=== PATIENT | female | born 1945 | race Caucasian/White ===

== ENCOUNTER → 2017-06-30 | Outpatient (CLI) | payer OTHER ==
[~2017-06-30] MED LIST: IOPAMIDOL (ISOVUE-300) 100 ML BTL ONE
== END ==
LOC: FIMAGING 09:48
PROVIDERS: ATTEND Internal Medicine
DX: N28.89 Other specified disorders of kidney and ureter (principal); R59.9 Enlarged lymph nodes, unspecified
CPT/HCPCS: 74178; Q9967

== ENCOUNTER → 2017-07-16 | Outpatient (CLI) | payer OTHER | LOC: CIMAGING 09:40 | PROVIDERS: ATTEND Specialist | DX: R91.8 Other nonspecific abnormal finding of lung field (principal); N28.89 Other specified disorders of kidney and ureter; I25.10 Atherosclerotic heart disease of native coronary artery without angina pectoris | CPT/HCPCS: 71250-PO ==

== ENCOUNTER 2017-07-29 11:25 | Inpatient (IN) | payer OTHER ==
[2017-07-29] MEDS ORDERED: LR 1,000 ML IV ONE (11:52)
[2017-07-29] MEDS ORDERED: LIDOCAINE 1% 2 ML INJ ID PRN (11:52)
[2017-07-29] MEDS ORDERED: ceFAZolin 2 GM/SWFI 2 GM/20 ML SYR IVP ONE (12:15)
--- NOTE | 2017-07-29 12:20 | PDHPUP ---
History & Physical Update H&P update statement: This history and physical update is based on an assessment of the patient which was completed after admission or registration (within 24 hours), but prior to the surgery/procedure. H&P update: no change in patient's condition since H&P completed
--- NOTE | 2017-07-29 12:24 | PDANEPAE ---
ANE History of Present Illness 71 yo female with urethelial carcinoma for L nephroureterectomy ANE Past Medical History - Cardiovascular History Hx Hypertension: Yes Hx Arrhythmias: No Hx Chest Pain: No Hx Coronary Artery / Peripheral Vascular Disease: No Hx CHF / Valvular Disease: No Hx Palpitations: No Cardiovascular History Comment: LBBB. HYPERLIPIDEMIA - Pulmonary History Hx COPD: No Hx Asthma/Reactive Airway Disease: No Hx Recent Upper Respiratory Infection: No Hx Oxygen in Use at Home: No Hx Sleep Apnea: No Sleep Apnea Screening Result - Last Documented: Negative - Neurologic History Hx Cerebrovascular Accident: No Hx Seizures: No Hx Dementia: No - Endocrine History Hx Diabetes: No Hypothyroid: No Hyperthyroid: No Obesity: no - Renal History Hx Renal Disorders: No Renal History Comment: MASS KIDNEY L - Liver History Hx Hepatic Disorders: No - Neurological & Psychiatric Hx Hx Neurological and Psychiatric Disorders: No - Cancer History Hx Cancer: Yes Cancer History Comment: SQUAMOUS CELL - Congenital Disorder History Hx Congenital Disorders: No - GI History GERD: mild Hx Gastrointestinal Disorders: Yes Gastrointestinal History Comment: IBS - Other Health History Other Health History: NEG - Chronic Pain History Chronic Pain: Yes - Surgical History Prior Surgeries: SUBMANDIBULAR MASS. CATARACTS. URETEROSCOPY ANE Review of Systems Review of Systems: - Exercise capacity METS (RN): 5 METS - Systems Constitutional: Reports: no symptoms Respiratory: Reports: no symptoms ANE Patient History - Allergies Allergies/Adverse Reactions: No Known Allergies Allergy (Unverified 06/25/10 14:44) - Home Medications Home Medications: Cholecalciferol Vit D3 [Vitamin D3 2000 units tab (OTC)] 2,000 units PO DAILY [Last Taken Unknown] Losartan Potassium [Cozaar 50 mg (*)] 100 mg PO HS 07/16/17 [Last Taken Unknown] Metoprolol Tartrate [Lopressor 25 mg (*)] 25 mg PO HS 07/16/17 [Last Taken Unknown] Multivitamins [Multivitamin (*)] 1 each PO DAILY 07/16/17 [Last Taken Unknown] Propylene Glycol/Peg 400 [Systane 0.3-0.4% Eye Drops] 1 drop EACHEYE DAILY PRN 07/16/17 [Last Taken Unknown] Simvastatin [Zocor] 40 mg PO HS 07/19/17 [Last Taken Unknown] - NPO status NPO Since - Liquids (Date): 07/29/17 NPO Since - Liquids (Time): 09:30 NPO Since - Solids (Date): 07/28/17 NPO Since - Solids (Time): 12:00 - Anes Hx Anes Hx: post operative nausea and vomiting - Smoking Hx Smoking Status: Never smoked Marijuana use: No - Alcohol Use Alcohol Use: Rarely - Family Anes Hx Family Anes Hx: neg - N/A Family Hx Anesthesia Complications: NEG ANE Labs/Vital Signs - Vital Signs Blood Pressure: 134/75 Heart Rate: 77 Respiratory Rate: 16 O2 Sat (%): 92 Height: 154.94 cm Weight: 53.524 kg ANE Physical Exam - Airway Neck exam: FROM Mallampati Score: Class 3 Mouth exam: normal dental/mouth exam - Pulmonary Pulmonary: clear to auscultation - Cardiovascular Cardiovascular: regular rate and rhythym - ASA Status ASA Status: III ANE Anesthesia Plan Anesthesia Plan: general endotracheal anesthesia, spinal
[2017-07-29] MEDS ORDERED: MIDAZOLAM 2 MG/2 ML VIAL IVP ONE (12:35)
[2017-07-29] MEDS ORDERED: fentaNYL 100 MCG/2 ML INJ ONE (12:45)
[2017-07-29] MEDS ORDERED: ROCURONIUM 100 MG/10 ML VIAL ONE (12:45)
[2017-07-29] MEDS ORDERED: DEXAMETHASONE 4 MG/ML VIAL ONE (12:45)
[2017-07-29] MEDS ORDERED: morphINE PF 5 MG/10 ML INJ ONE (12:46)
[2017-07-29] MEDS ORDERED: PROPOFOL/EMULSION 500 MG/50 ML BOTTLE IV ONE ×2 (12:46)
[2017-07-29] MEDS ORDERED: MIDAZOLAM 2 MG/2 ML VIAL ONE (12:48)
[2017-07-29] MEDS ORDERED: BUPIVACAINE/EPI 0.5% 30 ML SDV ONE (13:01)
[2017-07-29] MEDS ORDERED: VASOPRESSIN 20 UNIT/ML VIAL ONE (14:03)
[2017-07-29] MEDS ORDERED: PHENYLEPHRINE HCL 100 MCG/ML SYR ONE ×2 (14:45)
[2017-07-29] MEDS ORDERED: THROMBIN(HUM PLAS)/FIBRINOG/CA 5 ML VIAL TP ONE (14:54)
[2017-07-29] MEDS ORDERED: ONDANSETRON 4 MG/2 ML VIAL ONE (15:30)
[2017-07-29] MEDS ORDERED: SUGAMMADEX SODIUM 200 MG/2 ML VIAL IVP ONE (16:08)
[2017-07-29] MEDS ORDERED: PROMETHAZINE HCL 25 MG/ML INJ IVP PRN (16:23)
[2017-07-29] MEDS ORDERED: LR 500 ML IV PRN (16:23)
[2017-07-29] MEDS ORDERED: ALBUTEROL 3 ML DEYVIAL IH PRN (16:23)
[2017-07-29] MEDS ORDERED: NALOXONE HCL 0.4 MG/ML INJ IVP PRN ×2 (16:23→16:38)
[2017-07-29] MEDS ORDERED: DIAZEPAM 10 MG/2 ML SYR IVP PRN (16:23)
[2017-07-29] MEDS ORDERED: ACETAMINOPHEN 500 MG TAB PO PRN (16:23)
--- NOTE | 2017-07-29 16:26 | POSTOPPROG ---
Post Op Note Date of Operation: 07/29/17 Surgeon: Praveen Weldon (# [id number]) Trial Consultant: Betty Weeks CFA Anesthesia: GET(General Endotracheal), Local (Specify) (0.5% Marcaine w/ epinephrine), Other (Specify) (Duramorph spinal) Pre-op Diagnosis: Left renal urothelial mass Post-op Diagnosis: Left renal urothelial mass Procedure: Robotic left nephroureterectomy Findings: See op note Inf/Abcess present in the surg proc area at time of surgery?: No EBL: 50-100 (100 cc) Complications: None Specimen(s): Left kidney & ureter
[2017-07-29] MEDS ORDERED: LIDOCAINE 2% JELLY 5 ML TUBE TP PRN (16:36)
[2017-07-29] MEDS ORDERED: ONDANSETRON 4 MG/2 ML VIAL IVP PRN (16:36)
[2017-07-29] MEDS ORDERED: OPIUM/BELLADONNA ALKALO SUPP PR PRN (16:36)
[2017-07-29] MEDS ORDERED: HYDROmorphONE/DILAUDID 6 MG/30 ML PCA IV PRN (16:38)
--- NOTE | 2017-07-29 16:41 | POSTANESTH ---
Post Anesthetic Evaluation Cardiovascular Status: Normal, Stable Respiratory Status: Normal, Stable Level of Consciousness/Mental Status: Can Participate in Eval, Moderately Sleepy Pain Control: Adequate, Prn Tx Ordered Nausea/Vomiting Control: Adequate, Prn Tx Ordered Complications Possibly Related to Anesthesia: None Noted
[2017-07-29] MEDS: METOPROLOL TARTRATE 25 MG TAB PO SCH (21:27)
[2017-07-29] MEDS: LOSARTAN POTASSIUM 50 MG TAB PO SCH (21:29)
[2017-07-30] MEDS: D5W 1/2 NS 1,000 ML IV SCH ×2 (02:53→22:41)
--- NOTE | 2017-07-30 03:55 | GOP ---
[f rep st] OPERATIVE REPORT DATE OF OPERATION: 07/29/2017 SURGEON: Praveen Weldon MD SALES CONTRACTOR: SHANNAN Bolden ANESTHESIA: General endotracheal with Duramorph spinal. PREOPERATIVE DIAGNOSIS: Left renal urothelial carcinoma. POSTOPERATIVE DIAGNOSIS: Left renal urothelial carcinoma. PROCEDURE PERFORMED: Robotically-assisted laparoscopic left nephroureterectomy. FINDINGS: Grossly normal left kidney and ureter. SPECIMENS: Left kidney and ureter. ESTIMATED BLOOD LOSS: Approximately 100 cc. INDICATIONS: This is a 71-year-old woman recently found to have a left urothelial renal mass that was confirmed to be malignancy on retrograde nephroscopic biopsies. It was recommended that she undergo intraoperative nephroureterectomy at this time. The indications for the procedures as well as potential risks and complications were discussed with the patient preoperatively. She appeared to understand, her questions were answered, and she wished to proceed. Written informed surgical consent was thereafter obtained. DESCRIPTION OF PROCEDURE: The patient was brought to the operating room and administered a Duramorph spinal. She was then carefully placed in the supine position on the operating room table. She was administered general endotracheal anesthesia successfully. She was placed over the break of the table. A triangular pad was placed along the patient's left back, and her left side was propped up approximately 30 degrees. The table was then flexed approximately 20 degrees. The right leg was flexed at the knee, and the left leg was kept straight over it with pillows in between them. All pressure points were then thoroughly padded. The patient was then thoroughly secured to the table with several wide strips of cloth tape as well as using the safety strap on the bed. The patient's left arm was kept in a foam trough along her left side, while the right arm was abducted less than 90 degrees in a neutral position on an arm board. Prior beginning the positioning and the patient had been administered general endotracheal anesthesia, a 20-Occitan Larry catheter was placed without complication and connected to bag drainage. Once the patient had been thoroughly secured to the operating room bed, the bed was airplaned back and forth in maximum positions to ensure patient stability on the operating room table. This was confirmed. The abdomen was then sterilely prepped and draped in standard fashion utilizing Ioban. The table was airplaned in a position so that the patient's abdomen was relatively flat. Intraabdominal access was gained in the left upper quadrant a few centimeters below the xiphoid process and just lateral to the midline with a Veress needle after making a small cheryl in the skin with a scalpel. The abdomen was then insufflated to 15 mmHg and a 12 mm laparoscopic port placed at this location. Proper intraabdominal access was confirmed with a robotic camera at this point. I then marked out my remaining port sites, which were as follows: An 8 mm robotic port placed in the lower part of the left upper quadrant just lateral to the midclavicular line, another 8 mm robotic port placed in the upper portion of the left upper quadrant just below the costal margin and nearly in the same transverse line as the other 8 mm robotic port, and a 12 mm medical assistant secretary port placed in the midline just below the umbilicus. All these ports were placed under direct vision without complication. The patient was then airplaned to a [id number] position approximately 90 degrees. The robot was then docked perpendicular to the bed while keeping the midline post of the robot machine in line with the 12 mm laparoscopic port to be used for the robotic camera. The appropriate robotic arms were secured successfully to the ports. The 0-degree 12 mm robotic camera was used throughout the remainder of the case. I then left the patient's bedside and entered the surgeon's robotic console. I began the robotic portion of the procedure by carefully mobilizing the left colon off the lateral abdominal wall with monopolar scissors dissection. The plane between the anterior aspect of Gerota's fascia and the lateral aspect of the fat associated with the descending colon was identified and developed carefully. The colon was then carefully mobilized medially to about the midline. I continued my dissection inferior to the kidney in order to identify the gonadal vein and ureter. I was ultimately able to identify those structures and continued my dissection posterior to these structures until the psoas fascia was identified. It should be mentioned that a left ureteral stent had been previously placed in the ureter and was kept in and removed with the remainder of the specimen. I then had my medical assistant secretary retract upwards on the ureter and gonadal vein to allow me to continue my dissection in a cephalad fashion towards the renal hilum. I continued the dissection also posteriorly and elevated all the perinephric fat off the psoas fascia and included this fat with the specimen. Along the medial aspect of the dissection, I was able to ultimately identify the primary renal vein. There was a secondary tributary off the primary renal vein that entered the inferior vena cava along its inferior aspect. I ultimately ligated this branch with Hem- o-Ivette clips and divided it with scissors. I was then carefully able to identify the renal artery that was located immediately below the renal vein. I developed a plane above the renal vein carefully until I was able to complete isolate the renal pedicle. A load of the 45 mm linear vascular stapler was then utilized to ligate the renal hilum successfully. I continued my dissection along the superomedial aspect of the kidney and also along the splenorenal ligament and divided this plane of dissection with several uses of the 45 mm linear vascular stapler. The adrenal gland was identified and spared from removal. The posterior dissection off the psoas fascia was then continued superiorly and laterally. I was ultimately able to completely dissect the kidney free. There was no obvious extrarenal malignancy appreciated. I then continued my dissection of the ureter deep into the pelvis as far as possible. I then placed the kidney, while still attached to the ureter, in the pelvis. The renal hilum was carefully inspected. No active bleeding was noted. The spleen was noted to be intact. The adrenal gland was in place and hemostatic. Nonetheless, I did utilize 5 cc of Evicel along the renal hilum and the exposed surface of the adrenal gland for further hemostatic purposes. This completed the robotic portion of the procedure. I then returned to the patient's bedside. A fascial closure device and an 0 Vicryl suture were utilized to reapproximate the rectus fascia at the two 12 mm port sites. The 8 mm robotic ports were then removed. The patient was then airplaned in a position to where her abdomen was near nearly flat. A left lower quadrant oblique incision was made in a Fish-type fashion with a scalpel and carried through the anterior abdominal wall with electrocautery. The external oblique aponeurosis and its continuation with the anterior rectus fascia was then incised with electrocautery. I was able to stay retroperitoneal with this dissection and carried it down until I was able to identify the bladder. I then was able to grab the dissected kidney and its attached ureter and bring it out through the left lower quadrant incision. I continued my dissection of the ureter down to the bladder hiatus. Circumferential dissection through the bladder hiatus was then performed until I was able to reach the intramural portion of the ureter and the ureteral orifice. I was able to perform this dissection with only a small cystotomy created at the level of the left trigone. By this point, I had nursing staff fill the bladder with 100 cc of sterile fluid. I then used electrocautery to circumferentially excise the entire distal portion of the ureter. The stent was also removed in its entirety. The specimen was then passed off the table and sent to Pathology for permanent histologic examination. The bladder was then closed in 2 layers with running 2-0 Vicryl suture. The deeper layer incorporated the mucosa and muscularis propria, while the outer layer incorporated the serosa and muscularis propria. After completing the bladder closure, the bladder was then filled with approximately 150 cc of sterile fluid by nursing staff. The bladder was noted to be watertight. This fluid was then allowed to drain through the catheter and bag. The left lower quadrant wound was then carefully inspected. Some minor bleeding was noted from a small vein medial to the external iliac vein. It was ligated successfully with 2-0 Vicryl stick ties and Hem-o-Ivette clips. There was a small rent in the most inferior aspect of the peritoneum that had been created as result of the initial open dissection. This was closed with running 2-0 Vicryl suture. It should also be mentioned that a [place] retractor with a bladder blade was used to help with retraction during the open portion of procedure. I then initiated closure of the left lower quadrant incision by first reapproximating the anterior rectus fascia and external oblique aponeurotic fibers with running 0 Vicryl suture. Raul's fascia was reapproximated with a running 2-0 Vicryl stitch. The subcutaneous tissue was cauterized for hemostatic purposes. A total of 30 cc of 0.5% Marcaine with epinephrine was used for local anesthetic at all the incisions. The skin edges for each incision were then reapproximated with running 4-0 Monocryl suture in a subcuticular fashion followed by the application of Dermabond. The patient was then awakened, extubated, transferred to her bed, then taken to the recovery room. She tolerated the procedure well overall. COMPLICATIONS: None. DISPOSITION: She was transferred to the recovery room in stable condition and will be admitted for postoperative care. /[id number]/MODL MTDD
--- NOTE | 2017-07-30 08:41 | SOAPPROG ---
SOAP Progress Note Assessment/Plan: Assessment: 1. POD 1 s/p robotic left nephroureterectomy - stable. 2. Probable right corneal abrasion. Discussed w/ Dr. Gonzáles. Plan: 1. Ambulate, continue CLD diet (possibly advance this evening). 2. Continue Larry -- this will need to stay in for about 1 week. 3. Eye drops as per Dr. Gonzáles -- she will order. 07/30/17 08:40 Subjective: Only complaint is tearing and discomfort from her right eye that started immediately after surgery. No N/V. Objective: Vital Signs Temp Pulse Resp BP Pulse Ox 36.8 C 70 12 136/54 H 96 07/30/17 08:00 07/30/17 08:00 07/30/17 08:00 07/30/17 08:00 07/30/17 08:00 Laboratory Results 07/30/17 05:00 07/30/17 05:00 07/29/17 07/30/17 07/31/17 05:59 05:59 05:59 Intake Total 4990 Output Total 710 Balance 4280 Physical Exam - Physical Exam General Appearance: WD/WN, alert, no apparent distress EENT: other (right eye is nearly continuously tearing) Abdomen: non-tender, soft, other (incisions c/d/i) Skin: normal color, warm/dry Extremities: non-tender, normal inspection Neuro/Psych: alert, normal mood/affect, oriented x 3 ICD10 Worksheet Patient Problems: Problems Problem Status Onset Urothelial carcinoma of kidney Acute - ICD10 Problem Qualifiers (1) Urothelial carcinoma of kidney
[2017-07-30] MEDS ORDERED: LIDOCAINE 3.5% OP ONE (13:18)
--- NOTE | 2017-07-30 13:20 | SOAPPROG ---
SOAP Progress Note Assessment/Plan: Assessment: Post op day 1 left nephroureterectomy Eye irritation Urinary retention Plan: Continue clear diet. Lidocaine and toradol eye drops rx RN will irrigate jang catheter and if unable to resume passage of urine, will have them place 22 F catheter. 07/30/17 13:19 Subjective: bladder pain Objective: Vital Signs Temp Pulse Resp BP Pulse Ox 37.0 C 74 12 129/54 H 96 07/30/17 12:00 07/30/17 12:00 07/30/17 12:00 07/30/17 12:00 07/30/17 12:00 Laboratory Results 07/30/17 05:00 07/30/17 05:00 07/29/17 07/30/17 07/31/17 05:59 05:59 05:59 Intake Total 4990 Output Total 710 600 Balance 4280 -600 Physical Exam - Physical Exam General Appearance: alert Respiratory: normal breath sounds Abdomen: distended ICD10 Worksheet Patient Problems: Problems Problem Status Onset Urothelial carcinoma of kidney Acute
[2017-07-30] MEDS: KETOROLAC 0.5% 5 ML OPHT.BTL EACHEYE SCH ×2 (15:06→20:05)
--- NOTE | 2017-07-30 16:27 | ASMTCMCOM ---
CM Note CM Note Notes: Pt had surgery today for renal mass. CM will continue to follow for any DC needs. Date Signed: 07/30/2017 04:27 PM Electronically Signed By:Kathleen Simth LCSW
[2017-07-30] MEDS: METOPROLOL TARTRATE 25 MG TAB PO SCH (20:03)
[2017-07-30] MEDS: LOSARTAN POTASSIUM 50 MG TAB PO SCH (20:03)
[2017-07-30] MEDS: PROMETHAZINE HCL 25 MG/ML INJ IVP PRN (22:42)
[2017-07-31] MEDS: KETOROLAC 0.5% 5 ML OPHT.BTL EACHEYE SCH (05:58)
[2017-07-31] MEDS: D5W 1/2 NS 1,000 ML IV SCH (06:26)
[2017-07-31] MEDS: HYDROCODONE/APAP 10/325 TAB PO PRN ×4 (11:18→20:58)
[2017-07-31] MEDS: BESIVANCE RTEYE SCH ×2 (11:18→21:00)
--- NOTE | 2017-07-31 18:02 | SOAPPROG ---
SOAP Progress Note Assessment/Plan: Assessment: Urothelial carcinoma of kidney Acute POD # 2 Doing well, continue care, path pending Plan: continue care 07/31/17 18:01 Subjective: ok post op Objective: Vital Signs Temp Pulse Resp BP Pulse Ox 36.7 C 86 14 122/55 H 93 07/31/17 16:56 07/31/17 16:56 07/31/17 16:56 07/31/17 16:56 07/31/17 16:56 Laboratory Results 07/31/17 04:20 07/31/17 04:20 07/30/17 07/31/17 08/01/17 05:59 05:59 05:59 Intake Total 4990 2000 Output Total 710 1850 Balance 4280 150 Physical Exam - Physical Exam General Appearance: alert Respiratory: No respiratory distress Cardiac/Chest: regular rate, rhythm Abdomen: No non-tender Back: No CVA tenderness Skin: warm/dry Neuro/Psych: alert, oriented x 3 ICD10 Worksheet Patient Problems: Problems Problem Status Onset Urothelial carcinoma of kidney Acute
[2017-07-31] MEDS: METOPROLOL TARTRATE 25 MG TAB PO SCH (20:58)
[2017-07-31] MEDS: LOSARTAN POTASSIUM 50 MG TAB PO SCH (20:58)
[2017-07-31] MEDS: PROMETHAZINE HCL 25 MG/ML INJ IVP PRN (21:00)
[2017-08-01] MEDS: HYDROCODONE/APAP 10/325 TAB PO PRN ×4 (03:04→21:16)
[2017-08-01] MEDS: BESIVANCE RTEYE SCH ×2 (09:16→20:44)
--- NOTE | 2017-08-01 13:05 | SOAPPROG ---
SOAP Progress Note Assessment/Plan: Assessment: Urothelial carcinoma of kidney Acute POD # 3 Doing well, continue care, path pending Plan: continue care / hospitalization due to delayed GI tract function 08/01/17 13:03 Subjective: feeling better, no bowel function yet Objective: Vital Signs Temp Pulse Resp BP Pulse Ox 36.9 C 75 18 142/55 H 94 08/01/17 07:36 08/01/17 07:36 08/01/17 07:36 08/01/17 07:36 08/01/17 07:36 Laboratory Results 07/31/17 04:20 07/31/17 04:20 07/31/17 08/01/17 08/02/17 05:59 05:59 05:59 Intake Total 1999 1795.4 500 Output Total 1850 1900 Balance 150 -104.6 500 Physical Exam - Physical Exam Neck: full range of motion Respiratory: No respiratory distress Cardiac/Chest: regular rate, rhythm Abdomen: soft (mild distension) Back: No CVA tenderness Neuro/Psych: oriented x 3 ICD10 Worksheet Patient Problems: Problems Problem Status Onset Urothelial carcinoma of kidney Acute
[2017-08-01] MEDS: LOSARTAN POTASSIUM 50 MG TAB PO SCH (20:42)
[2017-08-01] MEDS: METOPROLOL TARTRATE 25 MG TAB PO SCH (20:43)
[2017-08-02] MEDS: HYDROCODONE/APAP 10/325 TAB PO PRN ×2 (03:18→11:10)
[2017-08-02 07:40] VITALS: BP 134/65; PULSE 72; RESP 17; TEMP 98; O2SAT 95
--- NOTE | 2017-08-02 09:26 | SOAPPROG ---
SOAP Progress Note Assessment/Plan: Assessment: 1. POD 4 s/p robotic left nephroureterectomy - doing well. 2. Probable right corneal abrasion. Appreciate Dr. Pierre's assistance. Plan: 1. Discharge w/ [place]. 2. Eye care as per Dr. Pierre -- FU w/ him this afternoon. (D/C summ. # [id number]) Subjective: No complaints. Pain controlled w/ [place]. Right eye feels much better. Had some flatus overnight. Objective: Vital Signs Temp Pulse Resp BP Pulse Ox 36.7 C 72 17 134/65 H 95 08/02/17 07:37 08/02/17 07:37 08/02/17 07:37 08/02/17 07:37 08/02/17 07:37 Laboratory Results 07/31/17 04:20 07/31/17 04:20 08/01/17 08/02/17 08/03/17 05:59 05:59 05:59 Intake Total 1795.4 800 Output Total 1900 600 Balance -104.6 200 Physical Exam - Physical Exam General Appearance: WD/WN, alert, no apparent distress Abdomen: soft, other (mildly distended, incisions c/d/i, minimal tenderness around incisions) Skin: normal color, warm/dry Extremities: non-tender, normal inspection Neuro/Psych: alert, normal mood/affect, oriented x 3 ICD10 Worksheet Patient Problems: Problems Problem Status Onset Urothelial carcinoma of kidney Acute - ICD10 Problem Qualifiers (1) Urothelial carcinoma of kidney
--- NOTE | 2017-08-02 10:44 | ASMTLACE ---
LACE Length of stay for Answers: 4-6 days current admission Acuity / Level of Answers: Yes Care: Did the patient have an inpatient admission? Comorbidities - select Answers: Any tumor (including all that apply lymphoma or leukemia) # of Emergency department Answers: 1-2 visits in the last 6 months Score: 10 Date Signed: 08/02/2017 10:43 AM Electronically Signed By:Nevaeh Chambers RN
[2017-08-02] MEDS: BESIVANCE RTEYE SCH (11:11)
--- NOTE | 2017-08-02 17:28 | ASDISCHSUM ---
Discharge Information Plan Status:Home with No Needs Medically Cleared to Leave: Discharge Date:08/02/2017 01:50 PM CM D/C Disposition:Home, Routine, Self-Care ADT D/C Disposition:Home, Routine, Self-Care Projected Discharge Date:08/02/2017 01:50 PM Transportation at D/C: Discharge Delay Reason: Follow-Up Date:08/02/2017 01:50 PM Discharge Slot: Final Diagnosis: Placement Information Patient Contact Information Contact Name:ARAM Relationship: Address:[address] [place] Alternate Phone: [facility] [address]/Zip Code:[place] [address] Email: Financial Information Financial Class:Medicare Advantage Plans Primary Plan Desc:[facility] [employer] PLANS Primary Plan Number:[id number] Secondary Plan Desc: Secondary Plan Number: Assessment Information BC CM Progress Note CM Note CM Note Notes: Pt had surgery today for renal mass. CM will continue to follow for any DC needs. Date Signed: 07/30/2017 04:27 PM Electronically Signed By:Kathleen Smith LCSW LACE LACE Length of stay for Answers: 4-6 days current admission Acuity / Level of Answers: Yes Care: Did the patient have an inpatient admission? Comorbidities - select Answers: Any tumor (including all that apply lymphoma or leukemia) # of Emergency department Answers: 1-2 visits in the last 6 months Score: 10 Date Signed: 08/02/2017 10:43 AM Electronically Signed By:Nevaeh Chambers RN Case Management Discharge Plan Note Case Management Discharge Discharge Order Complete? Answers: Yes Patient to Obtain Answers: via Family Medications Transportation Arranged Answers: Family/Friends Family Notified Answers: Yes Discharge Comments Notes: Reviewed chart and discussed w/RN. [place]. Pt will dc home today w/ w/no CM needs. Intervention Information Intervention Type:*IM-Signed Date of Service:08/02/2017 11:55 AM Patient Type:Inpatient Staff Member:Jaymie Day Hours: Discipline: Severity: Comment:
--- NOTE | 2017-08-02 20:29 | GDS ---
[f rep st] DISCHARGE SUMMARY ADMITTING DIAGNOSIS: Left renal urothelial carcinoma. POSTOPERATIVE DIAGNOSES: 1. Left renal urothelial carcinoma. 2. Right corneal abrasion. PROCEDURES: Robotically-assisted left nephroureterectomy on 07/29/2017. HOSPITAL COURSE: Refer to the operative report for details regarding the procedure. Postoperatively, the patient did well overall. She did develop significant tearing and discomfort fr om her right eye. She was seen by Dr. Pierre on Wednesday afternoon and was determined to have a cornea l abrasion. He ordered medications for this, which helped significantly. She otherwise has done wel l postoperatively. She is ambulating and tolerating a regular diet. She started experiencing flatus on the commercial reporter of postoperative day 4. Her vital signs were stable, and she was afebrile post operatively. Her incisions were clean, dry, and intact. Remainder of her physical exam was unremark able. Urine was clear-colored within the Larry catheter at the time of discharge. Postoperative lab oratory work was stable. Pathology results are pending. She is ready for discharge on postoperative day 4. She will continue on her regular medications as w ell as eye medications ordered by Dr. Pierre. She will also use Dow p.r.n. pain. Activity restric tion instructions have been provided. She will be given routine Larry catheter care instructions. S he will follow up in my office the Wednesday following discharge for Larry removal. She will follow up with Dr. Pierre on Wednesday, the day of discharge, for reassessment of her corneal abrasion. /[id number]/MODL
== END 2017-08-02 13:50 | disposition home or self-care (01) | DRG 658 ==
LOC: F3E 11:25 → F1N 13:37
PROVIDERS: ADMIT Specialist; ATTEND Specialist
DX: C65.2 Malignant neoplasm of left renal pelvis (principal); S05.01XA Injury of conjunctiva and corneal abrasion without foreign body, right eye, initial encounter; I10 Essential (primary) hypertension; E78.5 Hyperlipidemia, unspecified; Y92.239 Unspecified place in hospital as the place of occurrence of the external cause
CPT/HCPCS: J0690; J1100; J1170; J2250; J2274; J2370; J2405; J2550; J2704; J3010

== ENCOUNTER → 2017-09-04 | Outpatient (CLI) | payer OTHER | LOC: FIMAGING 08:46 | PROVIDERS: ATTEND Internal Medicine | DX: Z12.31 Encounter for screening mammogram for malignant neoplasm of breast (principal) ==

== ENCOUNTER 2017-12-16 11:24 | Day surgery (SDC) | payer OTHER ==
[2017-12-16] MEDS ORDERED: levOFLOXACIN 500 MG/DEXTROSE 100 ML IV ONE (11:29)
[2017-12-16] MEDS ORDERED: LR 1,000 ML IV ONE (11:30)
[2017-12-16] MEDS ORDERED: LIDOCAINE 1% 2 ML INJ ID PRN (11:30)
--- NOTE | 2017-12-16 13:49 | PDANEPAE ---
ANE History of Present Illness TURBT ANE Past Medical History - Cardiovascular History Hx Hypertension: Yes Hx Arrhythmias: No Hx Chest Pain: No Hx Coronary Artery / Peripheral Vascular Disease: No Hx CHF / Valvular Disease: No Hx Palpitations: No Cardiovascular History Comment: LBBB - ASYMPTOMATIC - NO TX. HYPERLIPIDEMIA - Pulmonary History Hx COPD: No Hx Asthma/Reactive Airway Disease: No Hx Recent Upper Respiratory Infection: No Hx Oxygen in Use at Home: No Hx Sleep Apnea: No Sleep Apnea Screening Result - Last Documented: Negative - Neurologic History Hx Cerebrovascular Accident: No Hx Seizures: No Hx Dementia: No - Endocrine History Hx Diabetes: No - Renal History Hx Renal Disorders: No Renal History Comment: MASS KIDNEY L. L NEPHRECTOMY 07/2017 - Liver History Hx Hepatic Disorders: No - Neurological & Psychiatric Hx Hx Neurological and Psychiatric Disorders: No - Cancer History Hx Cancer: Yes Cancer History Comment: SQUAMOUS CELL. KIDNEY CA. CURRENTLY BLADDER CA - Congenital Disorder History Hx Congenital Disorders: No - GI History Hx Gastrointestinal Disorders: Yes Gastrointestinal History Comment: IBS - Other Health History Other Health History: CORNEAL ABRASION POST ANESTH W/KIDNEY SURG - Chronic Pain History Chronic Pain: No - Surgical History Prior Surgeries: L NEPHRECTOMY 07/2017. SUBMANDIBULAR MASS 2009. CATARACTS. URETEROSCOPY 2017 ANE Review of Systems Review of systems is: negative Review of Systems: - Exercise capacity METS (RN): 4 METS ANE Patient History - Allergies Allergies/Adverse Reactions: No Known Allergies Allergy (Verified 12/10/17 11:36) - Home Medications Home Medications: Losartan Potassium [Cozaar 50 mg (*)] 100 mg PO HS 07/16/17 [Last Taken 12/15/17 ] Metoprolol Tartrate [Lopressor 25 mg (*)] 25 mg PO HS 07/16/17 [Last Taken 12/15] Multivitamins [Multivitamin (*)] 1 each PO DAILY 07/16/17 [Last Taken 12/12/17] Simvastatin [Zocor] 40 mg PO HS 07/19/17 [Last Taken 12/15/17] Cholecalciferol Vit D3 [Vitamin D3 (*)] 2,000 units PO DAILY 12/10/17 [Last Taken 12/12/17] LORazepam [Ativan (*)] 0.5 mg PO HS 12/10/17 [Last Taken 12/15/17] Loratadine [Claritin] 10 mg PO DAILY PRN 12/10/17 [Last Taken 12/15/17] Pembrolizumab [Keytruda] 100 mg IV Q21D 12/10/17 [Last Taken 12/15/17] - NPO status NPO Status: no food or drink >8 hours NPO Since - Liquids (Date): 12/16/17 NPO Since - Liquids (Time): 09:15 NPO Since - Solids (Date): 12/15/17 NPO Since - Solids (Time): 21:30 - Smoking Hx Smoking Status: Never smoked - Family Anes Hx Family Hx Anesthesia Complications: NEG ANE Labs/Vital Signs - Vital Signs Blood Pressure: 135/59 Heart Rate: 54 Respiratory Rate: 14 O2 Sat (%): 96 Height: 155.58 cm Weight: 52.163 kg ANE Physical Exam - Airway Neck exam: decreased ROM Mallampati Score: Class 1 Mouth exam: normal dental/mouth exam - Pulmonary Pulmonary: no respiratory distress, no rales or rhonchi - Cardiovascular Cardiovascular: regular rate and rhythym, no murmur, rub, or gallop - ASA Status ASA Status: III ANE Anesthesia Plan Anesthesia Plan: general endotracheal anesthesia
[2017-12-16] MEDS ORDERED: MIDAZOLAM 2 MG/2 ML VIAL IVP ONE (13:50)
--- NOTE | 2017-12-16 14:02 | PDANEPAE ---
ANE Past Medical History - Cardiovascular History Hx Hypertension: Yes Hx Arrhythmias: No Hx Chest Pain: No Hx Coronary Artery / Peripheral Vascular Disease: No Hx CHF / Valvular Disease: No Hx Palpitations: No Cardiovascular History Comment: LBBB - ASYMPTOMATIC - NO TX. HYPERLIPIDEMIA - Pulmonary History Hx COPD: No Hx Asthma/Reactive Airway Disease: No Hx Recent Upper Respiratory Infection: No Hx Oxygen in Use at Home: No Hx Sleep Apnea: No Sleep Apnea Screening Result - Last Documented: Negative - Neurologic History Hx Cerebrovascular Accident: No Hx Seizures: No Hx Dementia: No - Endocrine History Hx Diabetes: No - Renal History Hx Renal Disorders: No Renal History Comment: MASS KIDNEY L. L NEPHRECTOMY 07/2017 - Liver History Hx Hepatic Disorders: No - Neurological & Psychiatric Hx Hx Neurological and Psychiatric Disorders: No - Cancer History Hx Cancer: Yes Cancer History Comment: SQUAMOUS CELL. KIDNEY CA. CURRENTLY BLADDER CA - Congenital Disorder History Hx Congenital Disorders: No - GI History Hx Gastrointestinal Disorders: Yes Gastrointestinal History Comment: IBS - Other Health History Other Health History: CORNEAL ABRASION POST ANESTH W/KIDNEY SURG - Chronic Pain History Chronic Pain: No - Surgical History Prior Surgeries: L NEPHRECTOMY 07/2017. SUBMANDIBULAR MASS 2009. CATARACTS. URETEROSCOPY 2017 ANE Review of Systems Review of Systems: - Exercise capacity METS (RN): 4 METS ANE Patient History - Allergies Allergies/Adverse Reactions: No Known Allergies Allergy (Verified 12/10/17 11:36) - Home Medications Home Medications: Losartan Potassium [Cozaar 50 mg (*)] 100 mg PO HS 07/16/17 [Last Taken 12/15/17 ] Metoprolol Tartrate [Lopressor 25 mg (*)] 25 mg PO HS 07/16/17 [Last Taken 12/15] Multivitamins [Multivitamin (*)] 1 each PO DAILY 07/16/17 [Last Taken 12/12/17] Simvastatin [Zocor] 40 mg PO HS 07/19/17 [Last Taken 12/15/17] Cholecalciferol Vit D3 [Vitamin D3 (*)] 2,000 units PO DAILY 12/10/17 [Last Taken 12/12/17] LORazepam [Ativan (*)] 0.5 mg PO HS 12/10/17 [Last Taken 12/15/17] Loratadine [Claritin] 10 mg PO DAILY PRN 12/10/17 [Last Taken 12/15/17] Pembrolizumab [Keytruda] 100 mg IV Q21D 12/10/17 [Last Taken 12/15/17] - NPO status NPO Since - Liquids (Date): 12/16/17 NPO Since - Liquids (Time): 09:15 NPO Since - Solids (Date): 12/15/17 NPO Since - Solids (Time): 21:30 - Smoking Hx Smoking Status: Never smoked - Family Anes Hx Family Hx Anesthesia Complications: NEG ANE Labs/Vital Signs - Vital Signs Blood Pressure: 135/59 Heart Rate: 54 Respiratory Rate: 14 O2 Sat (%): 96 Height: 155.58 cm Weight: 52.163 kg
[2017-12-16] MEDS ORDERED: PROPOFOL/EMULSION 500 MG/50 ML BOTTLE IV ONE (14:13)
[2017-12-16] MEDS ORDERED: ONDANSETRON 4 MG/2 ML VIAL ONE (14:13)
[2017-12-16] MEDS ORDERED: ROCURONIUM 50 MG/5 ML VIAL ONE (14:13)
[2017-12-16] MEDS ORDERED: fentaNYL 100 MCG/2 ML INJ ONE ×2 (14:13→15:22)
[2017-12-16] MEDS ORDERED: LIDOCAINE 2% 5 ML SDV ONE (14:13)
[2017-12-16] MEDS ORDERED: oxyCODONE IR 5 MG TAB PO PRN (15:34)
[2017-12-16] MEDS ORDERED: HYDROCODONE/APAP 5/325 TAB PO PRN (15:34)
[2017-12-16] MEDS ORDERED: ACETAMINOPHEN 500 MG TAB PO PRN (15:34)
[2017-12-16] MEDS ORDERED: NALOXONE HCL 0.4 MG/ML INJ IVP PRN (15:34)
[2017-12-16] MEDS ORDERED: fentaNYL 100 MCG/2 ML INJ IVP PRN (15:34)
[2017-12-16] MEDS ORDERED: GLYCOPYRROLATE 0.2 MG/1 ML VIAL ONE ×3 (15:47)
[2017-12-16] MEDS ORDERED: NEOSTIGMINE METHYLSULFATE 10 MG/10 ML MDV ONE (15:47)
--- NOTE | 2017-12-16 15:47 | POSTOPPROG ---
Post Op Note Date of Operation: 12/17/17 Surgeon: Praveen Weldon (# [id number]) Anesthesia: GET(General Endotracheal) Pre-op Diagnosis: > 5 cm bladder tumor Post-op Diagnosis: > 5 cm bladder tumor Procedure: TURBT Findings: See op note Inf/Abcess present in the surg proc area at time of surgery?: No EBL: Minimal (< 10 cc) Complications: None Specimen(s): 1. Left posterior trigone 2. Dome
[2017-12-16] MEDS ORDERED: HYDROCODONE/APAP 5/325 TAB ONE (16:43)
[2017-12-16 17:42] VITALS: BP 157/62
--- NOTE | 2017-12-16 22:13 | GOP ---
[f rep st] OPERATIVE REPORT DATE OF OPERATION: 12/16/2017 SURGEON: Praveen Weldon MD ANESTHESIA: General endotracheal. 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 PROCEDURE PERFORMED: Transurethral bladder tumor resection greater than 5 cm. FINDINGS: Bladder tumors as detailed below. SPECIMENS: 1. Left posterior trigone. 1. Dome. 2. ESTIMATED BLOOD LOSS: Minimal. INDICATIONS: This woman has been previously diagnosed with high-grade, invasive left renal pelvic urothelial carcinoma, for which she underwent a nephroureterectomy. Surveillance cystoscopy was recently performed, which revealed multiple bladder tumors. She presents for operative management at this time. The indications for the procedures as well as potential risks and complications were discussed with the patient preoperatively. She appeared to understand, her questions were answered, and she wished to proceed. Written informed surgical consent was thereafter obtained. DESCRIPTION OF PROCEDURE: The patient was brought to the operating room and administered general endotracheal anesthesia. She was carefully placed in the dorsal lithotomy position on the cystoscopic table. The genital area was sterilely prepped with Betadine scrub and paint then draped in usual sterile fashion. Cystoscopy was performed with 30 and 70-degree lenses through a 22- [place] sheath. Urethra was unremarkable. Bladder revealed multiple areas of slightly raised tumors that were monochromatic. There was a region along the left posterior trigone, one area along the right anterolateral wall, and another region along the dome. I used both standard lighting as well as narrow band imaging to visualize the abnormal areas. Collectively, the abnormal tumor volume was greater than 5 cm. Right ureteral orifice was identified along the trigone and was normal in regards to shape and position. Left ureteral orifice was surgically absent. I used flexible grasping forceps to obtain sales representative uniforms biopsies for pathology from the left posterior trigone and also from the dome. Several biopsies were obtained from each of these locations using flexible biopsy forceps. Once the biopsies had been obtained, a 26-[place] 91 Wireless resectoscope and button electrode were then inserted into the bladder. I then completely fulgurated all of the abnormal- appearing areas, as well as a margin of normal-appearing urothelium. I performed the cauterization with the button electrode using both standard lighting and narrow band imaging. At the conclusion of the procedure, the areas that were resected were hemostatic and there was no gross perforation of the bladder that occurred as a result of the operative process. No residual abnormal tumor was identified within the bladder at the conclusion of the procedure. The instruments were removed and an 18-[place] Larry catheter placed with 15 cc of sterile water placed in the balloon. The catheter irrigated manually and the return was completely clear. The patient was then awakened, extubated, transferred to her bed, then taken to the recovery room. She tolerated the procedure well overall. COMPLICATIONS: None. DISPOSITION: She was transferred to the recovery room in stable condition and will be discharged with instructions to remove her Larry catheter on Wednesday morning. She will then return to the office in approximately 2 weeks, as scheduled, for review of pathology results. /[id number]/MODL MTDD
== END 2017-12-16 17:28 | disposition home or self-care (01) ==
LOC: FSGY 11:24 → F1N 11:24 → UNDOADMOB 11:24 → EDSTATUS 12:45 → FSGY 17:28
PROVIDERS: ATTEND Specialist
PROC: 0TBB8ZZ Excision of Bladder, Via Natural or Artificial Opening Endoscopic (ICD-10-PCS; principal; 2017-12-16 12:45)
DX: D09.0 Carcinoma in situ of bladder (principal); Z85.528 Personal history of other malignant neoplasm of kidney; E78.5 Hyperlipidemia, unspecified; I10 Essential (primary) hypertension
CPT/HCPCS: J1956; J2250; J2405; J2704; J3010

== ENCOUNTER → 2018-07-21 | Outpatient (CLI) | payer SELFPAY, OTHER | LOC: FIMAGING 11:31 ==